=== PATIENT | male | born 1985 | race African-American/Black ===

== ENCOUNTER 2017-03-05 22:08 | Emergency (ER) | payer SELFPAY ==
[~2017-03-05] VITALS: Ht 182.9 cm; Wt 100.0 kg
[2017-03-05 22:15] VITALS: TEMP 98.1
[2017-03-05 23:08] LABS: BASO % 0.2 % (0.0-2.0); GRAN # 14.2 (1.4-6.5); GRAN % 83.9 % (42.2-75.2); HEMATOCRIT 43.4 % (42.0-52.0); HEMOGLOBIN 14.5 g/dl (13.5-18.0); LYMPH # 1.6 (1.2-3.4); LYMPH % 9.4 % (20.0-51.0); MEAN CELL VOLUME 88 fl (80.0-100.0); MEAN CORPUSCULAR HEMOGLOBIN 29 pg (27.0-31.0); MEAN CORPUSCULAR HGB CONC 33 g/dl (33.0-37.0); MEAN PLATELET VOLUME 9.7 fl (7.4-10.4); PLATELET COUNT 214 K/mm3 (130-400); RED BLOOD COUNT 4.95 M/mm3 (4.20-5.60); REDCELL DISTRIBUTION WIDTH-CV 13.3 % (11.5-14.5)
[2017-03-05 23:21] LABS: ADJUSTED CALCIUM 9.1 mg/dL (8.4-10.2); ALANINE AMINOTRANSFERASE 96 U/L (21-72); ALBUMIN 5.1 gm/dL (3.5-5.0); ALKALINE PHOSPHATASE 60 U/L (50-136); ANION GAP 16 mmol/L (7-16); BILIRUBIN,TOTAL 1.8 mg/dL (0.0-1.0); BLOOD UREA NITROGEN 29 mg/dL (9-20); CARBON DIOXIDE 23 mmol/L (22-30); CHLORIDE 100 mmol/L (98-107); CREATININE, serum 1.21 mg/dL (0.66-1.25); GLUCOSE 124 mg/dL (74-106); LIPASE 50 U/L (23-300); POTASSIUM 3.9 mmol/L (3.4-5.0); SODIUM 139 mmol/L (137-145); TOTAL PROTEIN 9.1 gm/dL (6.4-8.2)
[2017-03-05 23:26] LABS: C-REACTIVE PROTEIN < 0.5 mg/dL (0.0-0.9)
[2017-03-05 23:35] LABS: TROPONIN-I < 0.012 ng/mL (0.000-0.034)
[2017-03-06] MEDS ORDERED: ZOFRAN ODT4 MG PO (00:23)
[2017-03-06 01:25] VITALS: BP 148/97; PULSE 60
== END 2017-03-06 01:15 | disposition home or self-care (01) ==
LOC: COL.ER 22:08
PROVIDERS: Family Medicine
DX: E86.9 Volume depletion, unspecified (principal); R11.10 Vomiting, unspecified
CPT/HCPCS: J2405; J2550; J7030